=== PATIENT | male | born 1975 | race Asian ===

== ENCOUNTER → 2019-04-16 | Outpatient (CLI) | payer OTHER | LOC: MHCPAIN 13:59 | DX: M54.12 Radiculopathy, cervical region (principal); M47.812 Spondylosis without myelopathy or radiculopathy, cervical region | CPT/HCPCS: G0463 ==

== ENCOUNTER → 2019-05-22 | Outpatient (CLI) | payer OTHER | LOC: MHCPAIN 10:46 | DX: M47.812 Spondylosis without myelopathy or radiculopathy, cervical region (principal) | CPT/HCPCS: G0463 ==

== ENCOUNTER → 2019-06-06 | Outpatient (CLI) | payer OTHER | LOC: MHCPAIN 08:27 | DX: M47.812 Spondylosis without myelopathy or radiculopathy, cervical region (principal) ==

== ENCOUNTER → 2019-06-12 | Outpatient (CLI) | payer OTHER | LOC: MHCPAIN 12:35 | DX: M47.812 Spondylosis without myelopathy or radiculopathy, cervical region (principal); G89.29 Other chronic pain | CPT/HCPCS: G0463 ==

== ENCOUNTER → 2019-06-14 | Outpatient (CLI) | payer OTHER | LOC: COL.RAD 08:15 | DX: R55 Syncope and collapse (principal); R42 Dizziness and giddiness | CPT/HCPCS: Q9967 ==

== ENCOUNTER → 2019-06-24 | Outpatient (CLI) | payer OTHER | LOC: MHCPAIN 12:30 | DX: M54.2 Cervicalgia (principal) ==

== ENCOUNTER → 2019-10-30 | Outpatient (CLI) | payer OTHER | LOC: COL.RAD 10-29 11:02 | DX: M50.11 Cervical disc disorder with radiculopathy, high cervical region (principal); M48.02 Spinal stenosis, cervical region; Z98.1 Arthrodesis status ==

== ENCOUNTER → 2019-12-04 | Outpatient (CLI) | payer OTHER | LOC: COL.RAD 12:17 | DX: M50.30 Other cervical disc degeneration, unspecified cervical region (principal); M48.02 Spinal stenosis, cervical region; M54.12 Radiculopathy, cervical region; Z98.1 Arthrodesis status ==

== ENCOUNTER → 2020-06-01 | Outpatient (CLI) | payer OTHER | LOC: COL.RAD 10:57 | DX: Z98.1 Arthrodesis status (principal) ==

== ENCOUNTER → 2020-09-07 | Outpatient (CLI) | payer OTHER | LOC: COL.RAD 11:03 | DX: M50.30 Other cervical disc degeneration, unspecified cervical region (principal); M48.02 Spinal stenosis, cervical region; M50.10 Cervical disc disorder with radiculopathy, unspecified cervical region; Z98.1 Arthrodesis status ==